=== PATIENT | male | born 1975 | race Hispanic/Latino ===

== ENCOUNTER 2016-12-31 11:54 | Emergency (ER) | payer OTHER ==
[~2016-12-31] VITALS: Ht 175.3 cm; Wt 81.6 kg
[~2016-12-31 11:54] MED LIST: A/B OTIC 54 MG/15 ML AD; AMOXIL500 MG PO; AMPHETAMINE SAL20 MG PO; BACTRIM DS 8001 TAB PO; CATAPRES 0.1MG0.1 MG PO; CIPRODEX 0.3%-7.5 ML AD; CLINDAMYCIN HY300 MG PO; GABAPENTIN300 MG PO; KEFLEX500 M1 PO; KEFLEX500 MG PO; LAMOTRIGINE200 MG PO; LAMOTRIGINE25 MG; MOTRIN IB200 MG PO; MOTRIN800 MG PO; NAPROSYN 500 M500 MG PO; NAPROXEN500 M2 PO; NORFLEX100 MG PO; PYRIDIUM100 MG PO; TRAMADOL50 MG PO; VICODIN5-300 PO
--- NOTE | 2016-12-31 12:15 | ED GI/GU/ABDOMINAL COMPLAINT ---
History of Present Illness General Chief Complaint: Abdominal Pain/Flank Pain Stated Complaint: ABD PAIN,STD? Source: patient, old records Exam Limitations: no limitations Vital Signs & Intake/Output Vital Signs & Intake/Output Vital Signs Date Time Temp Pulse Resp B/P B/P Pulse O2 O2 Flow FiO2 Mean Ox Delivery Rate 12/31 1323 98.0 90 20 120/80 98 Room Air 12/31 1159 97.6 91 20 125/79 97 Room Air ED Intake and Output 01/01 0000 12/31 1200 Intake Total Output Total Balance Patient 180 lb Weight Weight Reported by Patient Measurement Method Allergies Coded Allergies: MDX - Hydrocodone (From VICODIN) (Intermediate, "DONT FEEL RIGHT" 12/01/14) Reconcile Medications No Known Home Medications Triage Note: PT STATES "MY STOMACH HURTS AND IT HURTS SOMETIMES WHEN I PEE" X 3-4 DAYS. PT STATES HE DOESN'T KNOW IF HE HAS A VIRUS OR AN STD. PT C/O NAUSEA AND STATES HE HASN'T EATEN IN 2 DAYS Triage Nurses Notes Reviewed? yes Onset: Abrupt Duration: day(s): (3), constant, waxing and waning Timing: recent history Quality/Severity: cramping Severity Numbers: 3 Location: generalized abdomen Radiation: no radiation Activities at Onset: none Prior Abdominal Problems: similar symptoms Sexual Orientation: Heterosexual Use of Protection: No No Modifying Factors: none Associated Symptoms: diarrhea HPI: 41-year-old male presents to ER for evaluation complaining of diarrhea that he has had for the past 3-4 days. He reports a sick contact at work with similar symptoms. He reports a crampy abdominal pain Nishant of diarrhea. This episode was yesterday. No black or bloody stools he denies nausea or vomiting. Patient denies history of abdominal surgeries in the past no recent travel or antibiotic use. He is also complaining of dysuria after urinating. No discharge no hematuria no penile or scrotal pain however he states he had a history of similar episode several years ago and diagnosed with gonorrhea and chlamydia for which she was treated. The patient states he essentially active in our does not use protection. No fever no chills no back pain no other complaints. (NADINE CARRILLO,ANUJ) Past History Travel History Traveled to [place] past 21 day No Medical History Any Pertinent Medical History? 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 No (ANUJ CARR) Review of Systems Review of Systems Constitutional: Reports: see HPI. All Other Systems: Reviewed and Negative Comments Review of systems: See HPI, All other systems negative. Constitutional, no chills no fever, no malaise HEENT: No visual changes no sore throat no congestion Cardiovascular: No chest pain , no palpitation Skin: no rashes, no change in skin Respiratory: No dyspnea no cough no sputum no hemoptysis GI: No nausea no vomiting, diarrhea, no bloating/constipation : dysuria No hematuria, no frequency, no discharge Muscle skeletal: No joint pain, no joint swelling, no back pain Neurologic: No numbnessno headache Psych: No stress Heme/endocrine: No bruising no bleeding Immunology: No lymphadenopathy (ANUJ CARR) Physical Exam Physical Exam General Appearance: well developed/nourished, no apparent distress, alert, awake Gastrointestinal: soft, non-tender Comments: Well-developed well-nourished person in no acute distress HEENT: Normal EENT exam; PERRL, EOMI, HEAD is atraumatic. moist mucous membranes. Neck: Supple, no lymphadenopathy, normal range of motion Back: Nontender, no CVA tenderness. Full range of motion Cardiovascular: Regular rate and rhythms no murmurs rubs Respiratory: Chest nontender.There were no bony deformities, no asymmetry. No respiratory distress. Patient speaking in full complete sentences. Breath sounds clear to auscultation bilaterally: NO W/R/R Abdomen: Soft, nontender nondistended, no appreciable organomegaly. Normal bowel sounds. No rebound/guarding, No appreciable enlargement of the abdominal aorta, No ascites. Extremity: No edema, full range of motion of extremities Neuro: Alert oriented x3, motor sensory normal. There were no obvious focal neurologic abnormalities. Skin: No appreciable rash on exposed skin, skin is warm and dry. Psych: Mood and affect is normal, memory and judgment is normal. Core Measures ACS in differential dx? No Severe Sepsis Present: No Septic Shock Present: No (NADINE CARRILLO,ANUJ) Progress Differential Diagnosis: appendicitis, biliary colic, bowel obstruction, colon cancer, diverticulitis, gastritis, hepatitis, hernia, ischemic bowel, inflamm bowel dis, pancreatitis, prostatitis, PUD/GERD, perforated viscous, pyelonephritis, SBO, STD, urethritis, UTI/pyelo Plan of Care: Orders Procedure Date/time Status CHLAMYDIA-GC DNA PROBE 12/31 1214 Active URINALYSIS 12/31 1214 Complete LIPASE 12/31 1214 Complete COMPREHENSIVE METABOLIC PANEL 12/31 1214 Complete CBC WITHOUT DIFFERENTIAL 12/31 1214 Complete AMYLASE 12/31 1214 Complete Laboratory Tests 12/31/16 1238: Urine Color YEL, Urine Clarity CLEAR, Urine pH 6.0, Ur Specific [place] 1.025, Urine Protein TRACE H, Urine Ketones 15 H, Urine Nitrite NEG, Urine Bilirubin NEG@ICTO, Urine Urobilinogen 1.0, Ur Leukocyte Esterase NEG, Ur Microscopic SEDIMENT EXAMINED, Urine RBC 3-5, Urine WBC RARE, Urine Bacteria RARE H, Urine Mucus MOD H, Urine Hemoglobin NEG, Urine Glucose NEG 12/31/16 1220: Anion Gap 11, Estimated GFR > 60, BUN/Creatinine Ratio 15.0, Glucose 110 H, Calcium 9.7, Total Bilirubin 1.4 H, AST 25, ALT 30, Alkaline Phosphatase 78, Total Protein 6.7, Albumin 4.1, Globulin 2.6, Albumin/Globulin Ratio 1.6, Amylase 50, Lipase 56, CBC w Diff NO MAN DIFF REQ, RBC 5.16, MCV 89.2, MCH 31.2 H, RDW 12.4, MPV 7.4, Gran % 67.6, Lymphocytes % 24.9, Monocytes % 5.2, Eosinophils % 1.7, Basophils % 0.6, Absolute Granulocytes 5.5, Absolute Lymphocytes 2.0, Absolute Monocytes 0.4, Absolute Eosinophils 0.1, Absolute Basophils 0, PUBS MCHC 35.0 Microbiology 12/31 123 URINE ROUT: GC DNA Probe - RECD 12/31 1237 URINE ROUT: Chlamydia DNA Probe (CATHERINE) - RECD Patient is nontoxic-appearing afebrile denies pain he's had no episodes of diarrhea here we'll treat prophylactically with azithromycin Rocephin, discussed with him plan of care GC culture was sent answered all his questions he feels palpable this plan advised bland diet clear liquids return anytime sooner with any concerns (ANUJ CARR) Initial ED EKG: none (ANUJ CARR) Departure Departure Disposition: HOME OR SELF CARE Condition: Stable Clinical Impression Primary Impression: Diarrhea Referrals: MALCOLM ALANIS (PCP/Family) Additional Instructions: You have been treated prophylactically for suspected sexually transmitted disease. You will receive a phone call from this hospital this week if here results are positive however you have been treated today for them. Use over-the -counter Imodium for diarrhea bland diet clear liquids advance as tolerated. Return to the ER anytime sooner with any concerns. 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 I have also reviewed all the pertinent lab results and diagnostic results. I agree with the findings and the plan of care as documented in the PA's/FARM OPERATIONS MANAGER's documentation. [X] I have reviewed the ED Record and agree with the PA's/FARM OPERATIONS MANAGER's documentation. [] Additions or exceptions (if any) to the PAs/FARM OPERATIONS MANAGER's note and plan are summarized below: [] (ZIA WALKER,ROCÍO) ED Attending Observation Initial Observation Note: I have seen and personally examined CAROLINA ROSAS on 12/31/16 at 1214. I agree with the current emergency department documentation. The disposition (admission or discharge) is uncertain at this time, he needs a period of observation for the following reason(s): The ED Nurse caring for this patient has been personally informed as to what the patient is being observed for. (ANUJ CARR)
[2016-12-31 12:29] LABS: ABSOLUTE BASOPHIL COUNT 0 /CUMM (0.0-0.2); ABSOLUTE EOSINOPHIL COUNT 0.1 /CUMM (0.0-0.7); ABSOLUTE GRANULOCYTE CT 5.5 /CUMM (1.4-6.5); ABSOLUTE MONOCYTE COUNT 0.4 /CUMM (0.10-0.60); BASOPHIL % 0.6 % (0.0-2.0); EOSINOPHIL % 1.7 % (0-5); GRANULOCYTE % 67.6 % (42.2-75.2); HEMATOCRIT 46.1 % (42-52); MEAN CORPUSCULAR HGB 31.2 PG (27.0-31.0); MEAN CORPUSCULAR VOLUME 89.2 FL (80.0-94.0); MEAN PLATELET VOLUME 7.4 FL (7.4-10.4); PLATELET COUNT 419 /CUMM (130-400); RBC DISTRIBUTION WIDTH 12.4 % (11.5-14.5); RED BLOOD CELL CT 5.16 /CUMM (4.70-6.10); WHITE BLOOD CELL COUNT 8.1 /CUMM (4.8-10.8)
[2016-12-31 13:23] VITALS: BP 120/80
== END 2016-12-31 13:24 ==
LOC: ERH 11:54
PROVIDERS: Physician Assistant Medical
DX: R19.7 Diarrhea, unspecified (principal)
CPT/HCPCS: 81001; 87491; 87591; 96372; J0456; J0696